=== PATIENT | male | born 1970 | race Caucasian/White ===

== ENCOUNTER 2017-10-30 12:51 | Inpatient (IN) | payer OTHER ==
[2017-10-30] MEDS: DIAZEPAM 5 MG/ML SYG IV (13:42)
[2017-10-30] MEDS: ONDANSETRON 4 MG INJ IV ×3 (13:42→22:26)
[2017-10-30] MEDS: SOD CHLORIDE 0.9% 1,000 ML IV ×2 (13:42→20:00)
[2017-10-30] MEDS: MECLIZINE 12.5 MG TAB PO (13:42)
[2017-10-30 15:26] LABS: ADD MAN DIFF? NO
[2017-10-30 16:02] LABS: WHITE BLOOD COUNT 14.7 10^3/ul (4.8-10.8)
[2017-10-30 16:02] LABS: BASOPHIL # 0.1 10^3/ul (0.0-0.1); BASOPHILS % 0.4 % (0.0-2.0); EOSINOPHILS % 0.2 % (0.0-7.0); HEMATOCRIT 44.4 % (42.0-52.0); HEMOGLOBIN 15.2 g/dl (14.0-18.0); LYMPHOCYTES # 1.5 10^3/ul (0.8-2.9); LYMPHOCYTES % 10.1 % (15.0-51.0); MEAN CORPUSCULAR HEMOGLOBIN 28.5 pg (29.0-33.0); MEAN CORPUSCULAR HGB CONC 34.2 g/dl (32.0-37.0); MEAN CORPUSCULAR VOLUME 83.1 fl (82.0-101.0); MEAN PLATELET VOLUME 10.9 fl (7.4-10.4); MONOCYTE # 0.9 10^3/ul (0.3-0.9); MONOCYTES % 6.1 % (0.0-11.0); NEUTROPHIL # 12.2 10^3/ul (1.6-7.5); NEUTROPHILS % 82.8 % (39.0-77.0); PLATELET COUNT 251 10^3/UL (140-415); RED BLOOD COUNT 5.34 10^6/ul (4.70-6.10)
[2017-10-30 16:25] LABS: ANION GAP 18 (8-16); BLOOD UREA NITROGEN 11 mg/dl (7-20); CALCIUM 8.8 mg/dl (8.4-10.2); CARBON DIOXIDE 26 mmol/L (21-31); CHLORIDE 104 mmol/L (97-110); CREATININE 0.68 mg/dl (0.61-1.24); GLUCOSE 109 mg/dl (70-220); POTASSIUM 3.3 mmol/L (3.5-5.1); SODIUM 145 mmol/L (135-144)
[2017-10-30 16:42] LABS: TROPONIN-I < 0.012 ng/ml (0.00-0.12)
[2017-10-30 17:53] LABS: FREE T4 (FREE THYROXINE) 1.23 ng/dl (0.64-1.79)
[2017-10-30] MEDS ORDERED: ACETAMINOPHEN 325 MG TAB PO (18:00)
[2017-10-30] MEDS ORDERED: morphine 2 MG INJ IV (18:00)
[2017-10-30] MEDS ORDERED: ONDANSETRON 4 MG INJ IV (18:00)
[2017-10-30] MEDS ORDERED: NITROGLYCERIN (SL) 0.4 MG TAB SL (18:00)
[2017-10-30] MEDS ORDERED: MAGNESIUM HYDROXIDE 30ML CUP PO (18:00)
[2017-10-30] MEDS ORDERED: LORAZEPAM 2 MG INJ IV (18:00)
[2017-10-30] MEDS ORDERED: NA PHOSPHATE/BIPHOS 133 ML ENEMA PR (18:00)
[2017-10-30] MEDS ORDERED: ALBUTEROL/IPRATROPIUM (NEB) 3 ML AMP HHN (18:00)
[2017-10-30] MEDS ORDERED: DOCUSATE SODIUM 100 MG CAP PO (18:00)
[2017-10-30] MEDS ORDERED: NACL 0.9% 3 ML SYG IV (18:00)
[2017-10-30] MEDS ORDERED: HYDROCODONE/APAP (5/325) TAB PO (18:00)
[2017-10-30 18:07] LABS: THYROID STIMULATING HORMONE 0.774 MIU/L (0.465-4.680)
[2017-10-30] MEDS ORDERED: VANCOMYCIN IV PER PHARMACY XX (19:30)
[2017-10-30 20:55] LABS: FREE T4 (FREE THYROXINE) 1.15 ng/dl (0.64-1.79)
[2017-10-30] MEDS ORDERED: CEFEPIME 2GM/50 ML (PMX) 50 ML IVPB (21:00)
[2017-10-30] MEDS: POTASSIUM CHLORIDE (SR) 20 MEQ TAB PO (22:26)
[2017-10-30] MEDS: SOD CHLORIDE 0.45% 1,000 ML IV (22:27)
[2017-10-30] MEDS: HEPARIN 5,000 UNIT/0.5 ML VIAL SC (23:10)
[2017-10-31] MEDS: PANTOPRAZOLE (EC) 40 MG TAB PO (05:30)
[2017-10-31] MEDS: SOD CHLORIDE 0.45% 1,000 ML IV ×2 (06:54→13:06)
[2017-10-31 08:26] LABS: ADD MAN DIFF? NO
[2017-10-31 08:33] LABS: WHITE BLOOD COUNT 9.6 10^3/ul (4.8-10.8)
[2017-10-31 08:33] LABS: BASOPHILS % 0.4 % (0.0-2.0); EOSINOPHILS % 0.4 % (0.0-7.0); HEMATOCRIT 41.6 % (42.0-52.0); HEMOGLOBIN 14.2 g/dl (14.0-18.0); LYMPHOCYTES # 1.6 10^3/ul (0.8-2.9); LYMPHOCYTES % 17.1 % (15.0-51.0); MEAN CORPUSCULAR HEMOGLOBIN 28.1 pg (29.0-33.0); MEAN CORPUSCULAR HGB CONC 34.1 g/dl (32.0-37.0); MEAN CORPUSCULAR VOLUME 82.4 fl (82.0-101.0); MONOCYTE # 0.9 10^3/ul (0.3-0.9); NEUTROPHILS % 72.8 % (39.0-77.0); PLATELET COUNT 252 10^3/UL (140-415); RED BLOOD COUNT 5.05 10^6/ul (4.70-6.10); RED CELL DISTRIBUTION WIDTH 14.3 % (11.5-14.5)
[2017-10-31 08:46] LABS: HEMOGLOBIN A1C 5.5 % (0-5.9)
[2017-10-31] MEDS ORDERED: AMLODIPINE 10 MG TAB PO (09:00)
[2017-10-31] MEDS ORDERED: HYDROCHLOROTHIAZIDE 25 MG TAB PO (09:00)
[2017-10-31 09:02] LABS: ANION GAP 15 (8-16); BLOOD UREA NITROGEN 13 mg/dl (7-20); CALCIUM 8.5 mg/dl (8.4-10.2); CARBON DIOXIDE 27 mmol/L (21-31); CHLORIDE 105 mmol/L (97-110); CREATININE 0.82 mg/dl (0.61-1.24); GLUCOSE 91 mg/dl (70-220); MAGNESIUM 2.1 mg/dl (1.7-2.5); POTASSIUM 3.3 mmol/L (3.5-5.1); SODIUM 144 mmol/L (135-144)
[2017-10-31] MEDS: HEPARIN 5,000 UNIT/0.5 ML VIAL SC ×2 (09:09→21:21)
[2017-10-31 09:10] LABS: CHOLESTEROL 199 mg/dl (100-200)
[2017-10-31 09:10] LABS: CHOL/HDL RATIO 7.3 RATIO; HDL CHOLESTEROL 27 mg/dl (27-67); LDL CHOLESTEROL,CALCULATED 116 mg/dl; TRIGLYCERIDES 282 mg/dl (0-149)
[2017-10-31 09:38] LABS: THYROID STIMULATING HORMONE 0.459 MIU/L (0.465-4.680)
[2017-10-31] MEDS ORDERED: POTASSIUM CHLORIDE 50 ML IVPB (11:30)
[2017-10-31] MEDS: POTASSIUM CHLORIDE (SR) 20 MEQ TAB PO (11:31)
[2017-10-31] MEDS: MECLIZINE 12.5 MG TAB PO (11:31)
[2017-10-31] MEDS ORDERED: POTASSIUM CHLORIDE 100 ML IVPB (12:00)
[2017-10-31 22:26] LABS: ADD UMIC YES; UR ASCORBIC ACID NEGATIVE (NEGATIVE); UR BACTERIA FEW /HPF (NONE SEEN); UR BILIRUBIN (Dip) NEGATIVE (NEGATIVE); UR BLOOD (Dip) 1+ mg/dL (NEGATIVE); UR CLARITY CLEAR (CLEAR); UR COLOR YELLOW (YELLOW); UR GLUCOSE (Dip) NEGATIVE (NEGATIVE); UR KETONES (Dip) NEGATIVE (NEGATIVE); UR LEUKOCYTE ESTERASE (Dip) NEGATIVE Leu/ul (NEGATIVE); UR MUCUS FEW /HPF (NONE SEEN); UR NITRITE (Dip) NEGATIVE (NEGATIVE); UR RBC 3 /HPF (0-5); UR SPECIFIC GRAVITY (Dip) 1.012 (1.003-1.030); UR TOTAL PROTEIN (Dip) NEGATIVE (NEGATIVE); UR UROBILINOGEN (Dip) NEGATIVE (NEGATIVE); UR WBC 1 /HPF (0-5)
[2017-11-01] MEDS: SOD CHLORIDE 0.45% 1,000 ML IV ×2 (02:10→16:37)
[2017-11-01] MEDS: PANTOPRAZOLE (EC) 40 MG TAB PO (05:40)
[2017-11-01] MEDS: ASPIRIN (EC) 81 MG TAB PO (08:08)
[2017-11-01 08:11] LABS: ADD MAN DIFF? NO
[2017-11-01 08:14] LABS: WHITE BLOOD COUNT 5.7 10^3/ul (4.8-10.8)
[2017-11-01 08:14] LABS: BASOPHIL # 0.1 10^3/ul (0.0-0.1); BASOPHILS % 0.9 % (0.0-2.0); EOSINOPHILS # 0.1 10^3/ul (0.0-0.5); EOSINOPHILS % 1.2 % (0.0-7.0); HEMATOCRIT 40.6 % (42.0-52.0); HEMOGLOBIN 13.8 g/dl (14.0-18.0); LYMPHOCYTES # 1.7 10^3/ul (0.8-2.9); LYMPHOCYTES % 30.1 % (15.0-51.0); MEAN CORPUSCULAR HEMOGLOBIN 28.5 pg (29.0-33.0); MEAN CORPUSCULAR VOLUME 83.7 fl (82.0-101.0); MEAN PLATELET VOLUME 10.5 fl (7.4-10.4); MONOCYTE # 0.5 10^3/ul (0.3-0.9); NEUTROPHIL # 3.3 10^3/ul (1.6-7.5); NEUTROPHILS % 58.6 % (39.0-77.0); PLATELET COUNT 236 10^3/UL (140-415); RED BLOOD COUNT 4.85 10^6/ul (4.70-6.10); RED CELL DISTRIBUTION WIDTH 14.3 % (11.5-14.5)
[2017-11-01] MEDS: HEPARIN 5,000 UNIT/0.5 ML VIAL SC ×2 (08:27→21:06)
[2017-11-01 08:45] LABS: ANION GAP 12 (8-16); BLOOD UREA NITROGEN 13 mg/dl (7-20); CALCIUM 8.3 mg/dl (8.4-10.2); CARBON DIOXIDE 30 mmol/L (21-31); CHLORIDE 107 mmol/L (97-110); CREATININE 0.82 mg/dl (0.61-1.24); GLUCOSE 87 mg/dl (70-220); POTASSIUM 3.9 mmol/L (3.5-5.1); SODIUM 145 mmol/L (135-144)
[2017-11-01] MEDS: INFLUENZA VIRUS VACCINE 0.5 ML (DISPENSING) IM* (10:20)
[2017-11-01] MEDS ORDERED: POLYMYXIN/BACITRACIN 1L IRRIG (10:43)
[2017-11-01] MEDS ORDERED: IODIXANOL LOCM 50 ML BTL (11:14)
[2017-11-01] MEDS ORDERED: MIDAZOLAM 1 MG/ML 2 ML INJ (11:21)
[2017-11-01] MEDS ORDERED: FENTAnyl 50 MCG/ML VIAL (11:21)
[2017-11-01] MEDS ORDERED: LIDOCAINE 1%/EPI 30 ML INJ (12:30)
[2017-11-01] MEDS ORDERED: DIPHENHYDRAMINE 50 MG INJ (13:24)
[2017-11-01] MEDS ORDERED: CEFAZOLIN 1 GM/50 ML (PMX) 100 ML IVPB (13:36)
[2017-11-01] MEDS: CEFAZOLIN 1 GM/50 ML (PMX) 50 ML IVPB ×2 (14:51→23:27)
[2017-11-01] MEDS: AMLODIPINE 5 MG TAB PO (14:51)
[2017-11-01] MEDS: MECLIZINE 12.5 MG TAB PO (20:53)
[2017-11-01] MEDS ORDERED: CEFAZOLIN (20 MG/ML) IV SYG IV* (21:00)
[2017-11-01] MEDS: hydrALAzine 20 MG INJ IV (23:28)
[2017-11-02] MEDS: ACETAMINOPHEN 325 MG TAB PO (01:18)
[2017-11-02] MEDS: PANTOPRAZOLE (EC) 40 MG TAB PO (06:31)
[2017-11-02 08:04] LABS: ADD MAN DIFF? NO
[2017-11-02 08:12] LABS: WHITE BLOOD COUNT 8.6 10^3/ul (4.8-10.8)
[2017-11-02 08:12] LABS: BASOPHIL # 0.1 10^3/ul (0.0-0.1); BASOPHILS % 0.6 % (0.0-2.0); EOSINOPHILS % 0.5 % (0.0-7.0); HEMATOCRIT 47.2 % (42.0-52.0); HEMOGLOBIN 16.3 g/dl (14.0-18.0); LYMPHOCYTES # 1.7 10^3/ul (0.8-2.9); LYMPHOCYTES % 19.9 % (15.0-51.0); MEAN CORPUSCULAR HEMOGLOBIN 28.5 pg (29.0-33.0); MEAN CORPUSCULAR HGB CONC 34.5 g/dl (32.0-37.0); MEAN CORPUSCULAR VOLUME 82.7 fl (82.0-101.0); MEAN PLATELET VOLUME 10.6 fl (7.4-10.4); MONOCYTE # 0.6 10^3/ul (0.3-0.9); MONOCYTES % 7.4 % (0.0-11.0); NEUTROPHIL # 6.2 10^3/ul (1.6-7.5); NEUTROPHILS % 71.3 % (39.0-77.0); PLATELET COUNT 272 10^3/UL (140-415); RED BLOOD COUNT 5.71 10^6/ul (4.70-6.10); RED CELL DISTRIBUTION WIDTH 14.4 % (11.5-14.5)
[2017-11-02 08:30] LABS: ANION GAP 16 (8-16); BLOOD UREA NITROGEN 11 mg/dl (7-20); CALCIUM 9.2 mg/dl (8.4-10.2); CARBON DIOXIDE 25 mmol/L (21-31); CHLORIDE 106 mmol/L (97-110); CREATININE 0.71 mg/dl (0.61-1.24); GLUCOSE 87 mg/dl (70-220); POTASSIUM 4.3 mmol/L (3.5-5.1); SODIUM 143 mmol/L (135-144)
[2017-11-02] MEDS: LISINOPRIL 20 MG TAB PO (08:41)
[2017-11-02] MEDS: AMLODIPINE 5 MG TAB PO (08:41)
[2017-11-02] MEDS: ASPIRIN (EC) 81 MG TAB PO (08:41)
[2017-11-02] MEDS: SOD CHLORIDE 0.45% 1,000 ML IV (08:41)
[2017-11-02] MEDS: CEFAZOLIN 1 GM/50 ML (PMX) 50 ML IVPB (08:41)
[2017-11-02] MEDS: HEPARIN 5,000 UNIT/0.5 ML VIAL SC (08:47)
== END 2017-11-02 17:15 | disposition home or self-care (01) | DRG 243 ==
LOC: TEL 18:50 → E/R 12:51 → TEL 17:32
PROVIDERS: Hospitalist
PROC: 0JH606Z Insertion of Pacemaker, Dual Chamber into Chest Subcutaneous Tissue and Fascia, Open Approach (ICD-10-PCS; principal; 2017-11-01 11:20)
PROC: 02HK3JZ Insertion of Pacemaker Lead into Right Ventricle, Percutaneous Approach (ICD-10-PCS; 2017-11-01 11:20)
PROC: 02H63JZ Insertion of Pacemaker Lead into Right Atrium, Percutaneous Approach (ICD-10-PCS; 2017-11-01 11:20)
DX: I49.5 Sick sinus syndrome (principal); G45.9 Transient cerebral ischemic attack, unspecified; I44.1 Atrioventricular block, second degree; I10 Essential (primary) hypertension; E87.6 Hypokalemia; R42 Dizziness and giddiness; E78.5 Hyperlipidemia, unspecified
CPT/HCPCS: 70450; 71045; 80048; 80061; 81001; 82962; 83036; 83735; 84100; 84439; 84443; 84484; 85025; 87086; 90686; 93005; 93306

== ENCOUNTER 2017-11-03 03:03 | Inpatient (IN) | payer OTHER ==
[2017-11-03 04:40] LABS: ADD MAN DIFF? NO
[2017-11-03 04:48] LABS: WHITE BLOOD COUNT 12.8 10^3/ul (4.8-10.8)
[2017-11-03 04:48] LABS: BASOPHILS % 0.2 % (0.0-2.0); EOSINOPHILS % 0.2 % (0.0-7.0); HEMATOCRIT 46.1 % (42.0-52.0); HEMOGLOBIN 15.7 g/dl (14.0-18.0); LYMPHOCYTES % 7.7 % (15.0-51.0); MEAN CORPUSCULAR HEMOGLOBIN 28.4 pg (29.0-33.0); MEAN CORPUSCULAR HGB CONC 34.1 g/dl (32.0-37.0); MEAN CORPUSCULAR VOLUME 83.5 fl (82.0-101.0); MEAN PLATELET VOLUME 10.6 fl (7.4-10.4); MONOCYTES % 7.9 % (0.0-11.0); NEUTROPHIL # 10.7 10^3/ul (1.6-7.5); NEUTROPHILS % 83.6 % (39.0-77.0); PLATELET COUNT 237 10^3/UL (140-415); RED BLOOD COUNT 5.52 10^6/ul (4.70-6.10); RED CELL DISTRIBUTION WIDTH 14.6 % (11.5-14.5)
[2017-11-03 05:02] LABS: LACTIC ACID 1.4 mmol/L (0.5-2.0)
[2017-11-03 05:03] LABS: ALANINE AMINOTRANSFERASE 84 IU/L (13-69); ALBUMIN 4.4 g/dl (3.3-4.9); ALBUMIN/GLOBULIN RATIO 1.25; ALKALINE PHOSPHATASE 65 IU/L (42-121); ANION GAP 17 (8-16); ASPARTATE AMINO TRANSFERASE 59 IU/L (15-46); BILIRUBIN,INDIRECT 0.6 mg/dl (0-1.1); BILIRUBIN,TOTAL 0.6 mg/dl (0.2-1.3); BLOOD UREA NITROGEN 14 mg/dl (7-20); CALCIUM 9.1 mg/dl (8.4-10.2); CARBON DIOXIDE 27 mmol/L (21-31); CHLORIDE 103 mmol/L (97-110); CREATININE 1.03 mg/dl (0.61-1.24); GLUCOSE 143 mg/dl (70-220); POTASSIUM 3.8 mmol/L (3.5-5.1); SODIUM 143 mmol/L (135-144); TOTAL PROTEIN 7.9 g/dl (6.1-8.1)
[2017-11-03 05:08] LABS: INR 0.93; PROTIME 12.6 Sec (11.9-14.9)
[2017-11-03 05:09] LABS: PARTIAL THROMBOPLASTIN TIME 29.2 Sec (25.0-35.0)
[2017-11-03 05:15] LABS: TROPONIN-I 0.014 ng/ml (0.00-0.12)
[2017-11-03 05:43] LABS: ADD UMIC YES; UR ASCORBIC ACID NEGATIVE (NEGATIVE); UR BILIRUBIN (Dip) NEGATIVE (NEGATIVE); UR BLOOD (Dip) NEGATIVE (NEGATIVE); UR CLARITY SLIGHTLY CLOUDY (CLEAR); UR COLOR AMBER (YELLOW); UR GLUCOSE (Dip) NEGATIVE (NEGATIVE); UR KETONES (Dip) NEGATIVE (NEGATIVE); UR LEUKOCYTE ESTERASE (Dip) NEGATIVE Leu/ul (NEGATIVE); UR MUCUS MANY /HPF (NONE SEEN); UR NITRITE (Dip) NEGATIVE (NEGATIVE); UR NONSQUAMOUS EPITHELIAL CELL <1 /HPF (NONE SEEN); UR RBC 3 /HPF (0-5); UR SPECIFIC GRAVITY (Dip) 1.028 (1.003-1.030); UR TOTAL PROTEIN (Dip) 1+ mg/dl (NEGATIVE); UR UROBILINOGEN (Dip) 1+ mg/dL (NEGATIVE); UR WBC 4 /HPF (0-5)
[2017-11-03] MEDS: morphine 4 MG/ML VIAL IV (06:03)
[2017-11-03] MEDS: ONDANSETRON 4 MG INJ IV ×2 (06:03→07:42)
[2017-11-03] MEDS: PIPER-TAZO 3.375 GM IV (PMX) 100 ML IVPB (06:04)
[2017-11-03] MEDS ORDERED: ONDANSETRON 4 MG INJ IV (07:00)
[2017-11-03] MEDS ORDERED: ACETAMINOPHEN 325 MG TAB PO (07:00)
[2017-11-03] MEDS ORDERED: NACL 0.9% 3 ML SYG IV (07:00)
[2017-11-03] MEDS: VANCOMYCIN 1 GM (PMX) 250 ML IVPB (07:26)
[2017-11-03] MEDS: SOD CHLORIDE 0.9% 1,000 ML IV ×2 (07:26→22:21)
[2017-11-03] MEDS: HYDROmorphONE 0.5 MG/0.5 ML SYG IV (07:44)
[2017-11-03] MEDS: HYDROmorphONE 1 MG/ML SYG IV (07:44)
[2017-11-03 08:06] LABS: C-REACTIVE PROTEIN 2.1 mg/dl (0.0-0.9)
[2017-11-03 09:07] LABS: ERYTHROCYTE SEDIMENTATION RATE 10 mm/Hr (0-15)
[2017-11-03] MEDS: morphine 2 MG INJ IV ×3 (11:02→20:24)
[2017-11-03 14:26] LABS: HEPATITIS B SURFACE ANTIGEN NEGATIVE (NEGATIVE)
[2017-11-03 14:44] LABS: HEPATITIS B CORE ANTIBODY NEGATIVE (NEGATIVE); HEPATITIS C VIRAL ANTIBODY NEGATIVE (NEGATIVE)
[2017-11-03 15:13] LABS: HEPATITIS B SURFACE ANTIBODY NEGATIVE (NEGATIVE)
[2017-11-03 15:16] LABS: LACTIC ACID 1.5 mmol/L (0.5-2.0)
[2017-11-03] MEDS: COLCHICINE 0.6 MG TAB PO ×2 (15:34→20:18)
[2017-11-03 15:52] LABS: URIC ACID 7.3 mg/dl (3.1-7.9)
[2017-11-03 18:34] LABS: LACTIC ACID 1.8 mmol/L (0.5-2.0)
[2017-11-03 19:56] LABS: URIC ACID 7.2 mg/dl (3.1-7.9)
[2017-11-03] MEDS: INDOMETHACIN 50 MG PO (20:17)
[2017-11-03] MEDS: LISINOPRIL 20 MG TAB PO (22:18)
[2017-11-03] MEDS: AMLODIPINE 10 MG TAB PO (22:18)
[2017-11-04] MEDS ORDERED: VANCOMYCIN IV PER PHARMACY XX (02:30)
[2017-11-04] MEDS ORDERED: PIPER-TAZO 3.375 GM IV (PMX) 100 ML IVPB (02:31)
[2017-11-04] MEDS ORDERED: VANCOMYCIN 1.5 GM in SOD CHLORIDE 0.9% 250 ML IVPB (03:30)
[2017-11-04 05:52] LABS: ADD MAN DIFF? NO
[2017-11-04] MEDS: SOD CHLORIDE 0.9% 1,000 ML IV ×2 (06:01→11:16)
[2017-11-04 06:03] LABS: BASOPHILS % 0.3 % (0.0-2.0); EOSINOPHILS # 0.1 10^3/ul (0.0-0.5); EOSINOPHILS % 0.7 % (0.0-7.0); HEMATOCRIT 42.5 % (42.0-52.0); HEMOGLOBIN 14.7 g/dl (14.0-18.0); LYMPHOCYTES # 1.6 10^3/ul (0.8-2.9); LYMPHOCYTES % 15.7 % (15.0-51.0); MEAN CORPUSCULAR HEMOGLOBIN 28.8 pg (29.0-33.0); MEAN CORPUSCULAR HGB CONC 34.6 g/dl (32.0-37.0); MEAN CORPUSCULAR VOLUME 83.3 fl (82.0-101.0); MEAN PLATELET VOLUME 10.5 fl (7.4-10.4); MONOCYTE # 1.5 10^3/ul (0.3-0.9); MONOCYTES % 14.3 % (0.0-11.0); NEUTROPHIL # 7.1 10^3/ul (1.6-7.5); NEUTROPHILS % 68.7 % (39.0-77.0); PLATELET COUNT 214 10^3/UL (140-415); RED CELL DISTRIBUTION WIDTH 14.3 % (11.5-14.5)
[2017-11-04 06:03] LABS: WHITE BLOOD COUNT 10.4 10^3/ul (4.8-10.8)
[2017-11-04 06:13] LABS: HEMOGLOBIN A1C 5.5 % (0-5.9)
[2017-11-04 06:33] LABS: MAGNESIUM 2.2 mg/dl (1.7-2.5)
[2017-11-04 06:47] LABS: ALANINE AMINOTRANSFERASE 70 IU/L (13-69); ALBUMIN 3.7 g/dl (3.3-4.9); ALBUMIN/GLOBULIN RATIO 1.23; ALKALINE PHOSPHATASE 55 IU/L (42-121); ANION GAP 13 (8-16); ASPARTATE AMINO TRANSFERASE 40 IU/L (15-46); BILIRUBIN,INDIRECT 0.8 mg/dl (0-1.1); BILIRUBIN,TOTAL 0.8 mg/dl (0.2-1.3); BLOOD UREA NITROGEN 11 mg/dl (7-20); CALCIUM 8.4 mg/dl (8.4-10.2); CARBON DIOXIDE 29 mmol/L (21-31); CHLORIDE 106 mmol/L (97-110); CREATININE 0.73 mg/dl (0.61-1.24); GLUCOSE 102 mg/dl (70-220); POTASSIUM 3.7 mmol/L (3.5-5.1); SODIUM 144 mmol/L (135-144); TOTAL PROTEIN 6.7 g/dl (6.1-8.1)
[2017-11-04 06:48] LABS: URIC ACID 6.7 mg/dl (3.1-7.9)
[2017-11-04] MEDS: ASPIRIN (EC) 81 MG TAB PO (08:19)
[2017-11-04] MEDS: COLCHICINE 0.6 MG TAB PO (08:19)
[2017-11-04] MEDS: INDOMETHACIN 50 MG PO ×2 (08:19→13:43)
[2017-11-04] MEDS: morphine 2 MG INJ IV (08:20)
[2017-11-04] MEDS ORDERED: AMLODIPINE 10 MG TAB PO ×2 (09:00)
[2017-11-04] MEDS ORDERED: LISINOPRIL 20 MG TAB PO ×2 (09:00)
== END 2017-11-04 15:30 | disposition home or self-care (01) | DRG 554 ==
LOC: MS2 11-04 04:52 → E/R 03:03 → MS3 05:40
DX: M10.9 Gout, unspecified (principal); I10 Essential (primary) hypertension; E78.5 Hyperlipidemia, unspecified; Z95.0 Presence of cardiac pacemaker; Z72.89 Other problems related to lifestyle
CPT/HCPCS: 36415; 71045; 73110-LT; 73610; 76705; 80053; 81001; 83036; 83605; 83735; 84443; 84484; 84560; 85025; 85610; 85651; 85730; 86140; 86704; 86706; 86803; 87040; 87086; 87340; 93005; 96365; 96375; 96376; 99285-25